=== PATIENT | male | born 1965 | race Caucasian/White ===

== ENCOUNTER 2016-12-24 10:12 | Emergency (ER) | payer OTHER ==
[~2016-12-24] VITALS: Ht 182.9 cm; Wt 85.0 kg
[~2016-12-24 10:12] MED LIST: AUGM875T PO; IBUP800T23 PO
[2016-12-24 10:13] VITALS: BP 149/87; PULSE 65; RESP 12; TEMP 97.8; O2SAT 96
[2016-12-24] MEDS ORDERED: IBUP800T23 PO (11:20)
[2016-12-24] MEDS ORDERED: ERYTOIN10 LEFT EYE (11:20)
--- NOTE | 2016-12-24 11:21 | PD ---
HPI Chief Complaint: Eye Problems/Injury Time Seen by Provider: 11:18 Travel History International Travel<30 days: No Contact w/Intl Traveler<30days: No Traveled to known affect area: No History of Present Illness HPI 51-year-old male presents to the emergency Department with complaint of left eye pain 2 days. He got a small, splinter piece of wood in his eye the other day and removed it and then started having eye pain with redness and clear drainage. He flushed his eye with no relief. Has not taken any medications or tried any treatments to the base symptoms. Reports blurry vision. Denies allergies. Denies fever, chills, nausea, vomiting. No other modifying factors or associated signs and symptoms. PFSH Past Medical History Diminished Hearing: No Social History Alcohol Use: Yes (6PK A DAY) Tobacco Use: Yes (1 PK DAY) Substance Use: No Allergies-Medications (Allergen,Severity, Reaction): Coded Allergies: No Known Allergies (Verified , 12/24/16) Reported Meds & Prescriptions Reported Meds & Active Scripts Active Ibuprofen 800 Mg Tab 800 Mg PO Q6HR PRN Erythromycin Opth Oint 5 Mg/Gm Oint 1 Applic LEFT EYE QID 7 Days Ibuprofen 800 Mg Tab 800 Mg PO TID PRN [id number] 875 Mg Tab 875 Mg PO BID 10 Days Review of Systems Except as stated in HPI: all other systems reviewed are Neg Physical Exam Narrative GENERAL: Well-nourished, well-developed male patient, in no acute distress SKIN: Warm and dry. HEAD: Atraumatic. Normocephalic. EYES: Pupils equal and round at 3 mm with brisk reaction. PERRLA. EOMI. Left lid eversion with no foreign body noted. Left eye with scleral erythema and mild lid edema. No orbital tenderness, erythema or cellulitis. Left eye with photophobia. No consensual photophobia. No scleral icterus. Clear drainage. Vasques lamp exam reveals corneal abrasion at the 6 o'clock position to the lower sclera area. ENT: Mucosa pink and moist. Airway patent. NECK: Trachea midline. CARDIOVASCULAR: Regular rate. RESPIRATORY: No accessory muscle use. GASTROINTESTINAL: Flat. NEUROLOGICAL: Awake and alert. Oriented 3. No obvious cranial nerve deficits. Motor grossly within normal limits. Normal speech. PSYCHIATRIC: Appropriate mood and affect; insight and judgment normal. Data Data Last Documented VS Vital Signs Date Time Temp Pulse Resp B/P Pulse Ox O2 Delivery O2 Flow Rate FiO2 12/24/16 10:13 97.8 65 12 149/87 96 Room Air MDM Medical Decision Making Medical Screen Exam Complete: Yes Emergency Medical Condition: Yes Medical Record Reviewed: Yes Differential Diagnosis Corneal abrasion, foreign body, corneal ulceration Narrative Course 51-year-old male physical exam consistent with a left eye corneal abrasion. Erythromycin eye ointment and ibuprofen prescribed for home. 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 Patient is medically cleared and stable for discharge. Discussed reasons to return to the emergency department. Instructed patient to follow up with primary care provider. Patient agrees with treatment plan. The patients vital signs are stable and the patient is stable for outpatient follow-up and treatment. Patient discharged home, stable and in no acute distress. Diagnosis Primary Impression: Corneal abrasion, left Qualified Code: S05.02XA - Corneal abrasion, left, initial encounter Referrals: Web Interface Developer Primary Care Physician Patient Instructions: Corneal Abrasion (ED), General Instructions Departure Forms: Tests/Procedures, Work Release Enter return to work date: Dec 25, 2016 Additional Instructions: Ibuprofen or Tylenol as directed and as needed to reduce pain Do not rub the eye Refrigerated eye drops as needed to reduce pain Cool compresses to the eye as needed to reduce pain Follow-up with ophthalmology Primary care provider Return to the emergency department immediately Med/Other Pt SpecificInfo: Prescription(s) given Scripts Ibuprofen 800 Mg [id number] Mg PO Q6HR PRN (PAIN) #30 TAB Ref 0 Prov:Nora Hall 12/24/16 Erythromycin Opth Oint 5 Mg/Gm Oint1 Applic LEFT EYE QID 7 Days Ref 0 Prov:Nora Hall 12/24/16 Disposition: 01 DISCHARGE HOME Condition: Stable Nora Hall Dec 24, 2016 11:21
== END 2016-12-24 11:47 | disposition home or self-care (01) ==
LOC: NEPB 10:12
DX: S05.02XA Injury of conjunctiva and corneal abrasion without foreign body, left eye, initial encounter (principal); H57.8 Other specified disorders of eye and adnexa; F17.200 Nicotine dependence, unspecified, uncomplicated; X58.XXXA Exposure to other specified factors, initial encounter
CPT/HCPCS: 99283

== ENCOUNTER 2017-06-02 10:31 | Emergency (ER) | payer SELFPAY ==
[~2017-06-02] VITALS: Ht 182.9 cm; Wt 83.0 kg
[~2017-06-02 10:31] MED LIST changes: +ERYTOIN10 LEFT EYE
[2017-06-02 10:32] VITALS: BP 158/103; PULSE 79; RESP 20; TEMP 98.2; O2SAT 98
[2017-06-02 10:48] VITALS: BP 142/88; PULSE 69; RESP 14; O2SAT 97
--- NOTE | 2017-06-02 10:48 | PD ---
HPI Chief Complaint: Skin Problem Time Seen by Provider: 10:48 Travel History International Travel<30 days: No Contact w/Intl Traveler<30days: No Traveled to known affect area: No History of Present Illness HPI 51-year-old male came to the emergency room with history of left lower leg swelling, redness and tenderness for past 2 days. 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 The laceration was gaping but he went home and cleaned it himself and Steri-Stripped it. Patient says that it seemed to be healing well up until 2 days ago when he noticed a redness. Yesterday he noticed a pus filled list or that he tried to pop. After that he cleaned it and soaked his leg in water with Epsom salt. But this morning he noticed the redness and swelling of his foot distally. No history of fever or chills. Vital signs are stable. He claims to be an otherwise healthy person. [facility] Past Medical History Narrative Medical List of his past medical, surgical, social and family history is reviewed from the nursing note. Diminished Hearing: No Social History Alcohol Use: Yes (6PK A DAY) Tobacco Use: Yes (1 PK DAY) Substance Use: No Allergies-Medications (Allergen,Severity, Reaction): Coded Allergies: *MDRO Multi-Drug Resistant Organism (Verified Adverse Reaction, Unknown, ) MRSA (ankle) 06/02/17 Comments No known allergies. Reported Meds & Prescriptions Reported Meds & Active Scripts Active Bactrim DS (Sulfamethoxazole-Trimethoprim) 800-160 Mg Tab 1 Tab PO BID Narrative Medication List of his home medications reviewed from the nursing note. Review of Systems Except as stated in HPI: all other systems reviewed are Neg Physical Exam Narrative GENERAL: Awake, alert, moderate distress SKIN: Focused skin assessment warm/dry. Redness, swelling, fluctuance and tenderness 4 cm above the medial malleolus on the left leg. This measures 5 cm x 2 cm. The foot distally is swollen as well. Good range of motion. No drainage. HEAD: Atraumatic. Normocephalic. EYES: Pupils equal and round. No scleral icterus. No injection or drainage. ENT: No nasal bleeding or discharge. Mucous membranes pink and moist. NECK: Trachea midline. No JVD. CARDIOVASCULAR: Regular rate and rhythm. No murmur appreciated. RESPIRATORY: No accessory muscle use. Clear to auscultation. Breath sounds equal bilaterally. GASTROINTESTINAL: Abdomen soft, non-tender, nondistended. Hepatic and splenic margins not palpable. MUSCULOSKELETAL: No obvious deformities. No clubbing. No cyanosis. No edema. NEUROLOGICAL: Awake and alert. No obvious cranial nerve deficits. Motor grossly within normal limits. Normal speech. PSYCHIATRIC: Appropriate mood and affect; insight and judgment normal. Data Data Last Documented VS Orders Complete Blood Count With Diff (06/02/17 10:53) Comprehensive Metabolic Panel (06/02/17 10:53) Lactic Acid Sepsis Protocol (06/02/17 10:53) Blood Culture (06/02/17 10:53) Blood Glucose (06/02/17 10:53) Ecg Monitoring (06/02/17 10:53) Iv Access Insert/Monitor (06/02/17 10:53) Oximetry (06/02/17 10:53) Oxygen Administration (06/02/17 10:53) Tibia/Fibula (Ap/Lat) (06/02/17 ) Wound Culture And Gram Stain (06/02/17 11:58) Wound Care (06/02/17 11:58) Lidocai-Epi 1%-1:100,000 Inj (Xylocaine- (06/02/17 12:00) Sulfamet-Trimeth Ds 800-160 Mg (Bactrim (06/02/17 12:15) Labs MDM Medical Decision Making Medical Screen Exam Complete: Yes Emergency Medical Condition: Yes Medical Record Reviewed: Yes Differential Diagnosis Osteomyelitis, abscess, cellulitis, retained foreign body Narrative Course 12:09 PM x-ray of the foot was negative for any fracture/osteomyelitis or foreign body. Patient has slight leukocytosis with left shift. I've asked the PA to do an I&D. Please refer to his note. Wound culture will be sent. I will order Bactrim as antibiotic. 1:18 PM given the elevated lactic acid I wanted the patient to be admitted but he wants to leave. He understands that the blood test results suggest that the infection is no longer just localized to his leg. However he does not want to stay because he doesn't have insurance and hospitalization incurs a lot of bills. He is in full capacity to make decisions for himself. He will sign AMA. I will however give him a prescription for Bactrim. Procedures EKG Prior to Arrival: No Diagnosis Primary Impression: Leg abscess Additional Impression: Lactic acidosis Scripts Sulfamethoxazole-Trimethoprim (Bactrim DS)800-160 Mg Tab1 Tab PO BID #20 TAB Ref 0 Prov:Margarita Hudson MD 06/02/17 Disposition: 07 AGAINST MEDICAL ADVICE Condition: Serious Margarita Hudson MD Jun 02, 2017 10:48 Neutrophils (%) (Auto) 74.9 % Lymphocytes (%) (Auto) 15.0 % Monocytes (%) (Auto) 9.3 % Eosinophils (%) (Auto) 0.3 % Basophils (%) (Auto) 0.5 % Neutrophils # (Auto) 9.3 TH/MM3 Lymphocytes # (Auto) 1.9 TH/MM3 Monocytes # (Auto) 1.2 TH/MM3 Eosinophils # (Auto) 0.0 TH/MM3 Basophils # (Auto) 0.1 TH/MM3 CBC Comment DIFF FINAL Differential Comment Sodium Level 141 MEQ/L Potassium Level 4.3 MEQ/L Chloride Level 108 MEQ/L Carbon Dioxide Level 24.8 MEQ/L Anion Gap 8 MEQ/L Blood Urea Nitrogen 12 MG/DL Creatinine 0.89 MG/DL Estimat Glomerular Filtration 91 ML/MIN Rate Random Glucose 101 MG/DL Lactic Acid Level 2.1 mmol/L Calcium Level 9.6 MG/DL Total Bilirubin 0.7 MG/DL Aspartate Amino Transf 13 U/L (AST/SGOT) Alanine Aminotransferase 26 U/L (ALT/SGPT) Alkaline Phosphatase 78 U/L Total Protein 7.7 GM/DL Albumin 3.9 GM/DL [facility] Medical Decision Making Medical Screen Exam Complete: Yes Emergency Medical Condition: Yes Medical Record Reviewed: Yes Differential Diagnosis Osteomyelitis, abscess, cellulitis, retained foreign body Narrative Course 12:09 PM x-ray of the foot was negative for any fracture/osteomyelitis or foreign body. Patient has slight leukocytosis with left shift. I've asked the PA to do an I&D. Please refer to his note. Wound culture will be sent. I will order Bactrim as antibiotic. 1:18 PM given the elevated lactic acid I wanted the patient to be admitted but he wants to leave. He understands that the blood test results suggest that the infection is no longer just localized to his leg. However he does not want to stay because he doesn't have insurance and hospitalization incurs a lot of bills. He is in full capacity to make decisions for himself. He will sign AMA. I will however give him a prescription for Bactrim. Procedures EKG Prior to Arrival: No Diagnosis Primary Impression: Leg abscess Additional Impression: Lactic acidosis Scripts Sulfamethoxazole-Trimethoprim (Bactrim DS)800-160 Mg Tab1 Tab PO BID #20 TAB Ref 0 Prov:Margarita Hudson MD 06/02/17 Disposition: 07 AGAINST MEDICAL ADVICE Condition: Serious Margarita Hudson MD Jun 02, 2017 10:48
[2017-06-02 11:18] LABS: AUTOMATED NEUTROPHIL # 9.3 TH/MM3 (1.8-7.7); BASOPHIL # 0.1 TH/MM3 (0-0.2); BASOPHIL % 0.5 % (0.0-2.0); EOSINOPHIL % 0.3 % (0.0-4.0); HEMATOCRIT 48.5 % (39.0-51.0); HEMO FLAGS DIFF FINAL; LYMPHOCYTE # 1.9 TH/MM3 (1.0-4.8); MEAN CELL VOLUME 95.3 FL (80.0-100.0); MEAN CORPUSCULAR HEMOGLOBIN 31.8 PG (27.0-34.0); MEAN CORPUSCULAR HGB CONC 33.3 % (32.0-36.0); MONO % 9.3 % (0.0-8.0); NEUT % 74.9 % (16.0-70.0); PLATELET COUNT 202 TH/MM3 (150-450); RED BLOOD COUNT 5.08 MIL/MM3 (4.50-5.90); RED CELL DISTRIBUTION WIDTH 13.1 % (11.6-17.2); WHITE BLOOD COUNT 12.4 TH/MM3 (4.0-11.0)
--- NOTE | 2017-06-02 11:47 | RADRPT ---
EXAM DATE/TIME: 06/02/2017 11:09 [place] COMPARISON: No previous studies available for comparison. INDICATIONS : Dropped piece concrete on ankle last week, pain with swelling medial ankle. MEDICAL HISTORY : None. SURGICAL HISTORY : None. ENCOUNTER: Initial ACUITY: 1 week PAIN SCORE: 9/10 LOCATION: Left ankle. FINDINGS: Two view examination of the left tibia demonstrates no evidence of fracture or dislocation. Bony min eralization is normal. There is focal soft tissue swelling just above the medial malleolus. No radiop aque foreign bodies are demonstrated. CONCLUSION: Focal soft tissue swelling just above the medial malleolus. Otherwise unremarkable exam. Deven Phelps MD on June 02, 2017 at 11:44 Board Certified Radiologist. This report was verified electronically.
[2017-06-02] MEDS ORDERED: LIDOCAINE 1%/EPINEPHrine 1:100,000 SOLN 20 ML VIAL INFIL ONE (12:00)
[2017-06-02 12:12] LABS: ANION GAP 8 MEQ/L (5-15); AST (GOT) 13 U/L (15-37); BICARBONATE 24.8 MEQ/L (21.0-32.0); BLOOD UREA NITROGEN 12 MG/DL (7-18); CHLORIDE 108 MEQ/L (98-107); GLOMERULAR FILTRATION RATE 91 ML/MIN (>89); POTASSIUM 4.3 MEQ/L (3.5-5.1); SODIUM (NA) 141 MEQ/L (136-145)
[2017-06-02 12:14] LABS: ALKALINE PHOSPHATASE 78 U/L (45-117); ALT (GPT) 26 U/L (12-78); TOTAL BILIRUBIN ADULT 0.7 MG/DL (0.2-1.0)
[2017-06-02] MEDS ORDERED: SULFAMETHOXAZOLE-TRIMETHOPRIM DS 800-160 MG TAB PO ONE (12:15)
--- NOTE | 2017-06-02 12:36 | PD ---
Physical Exam Date Seen by Provider: Jun 02, 2017 Time Seen by Provider: 12:35 Narrative 51-year-old male that presents to the ED for evaluation of abscess. I was asked by my attending to incise and drain abscess. Please refer to my attendings note. Data Data Last Documented VS Vital Signs Date Time Temp Pulse Resp B/P Pulse Ox O2 Delivery O2 Flow Rate FiO2 06/02/17 10:48 69 14 142/88 97 Room Air 06/02/17 10:32 98.2 Orders Complete Blood Count With Diff (06/02/17 10:53) Comprehensive Metabolic Panel (06/02/17 10:53) Lactic Acid Sepsis Protocol (06/02/17 10:53) Urinalysis - C+S If Indicated (06/02/17 10:53) Blood Culture (06/02/17 10:53) Blood Glucose (06/02/17 10:53) Ecg Monitoring (06/02/17 10:53) Iv Access Insert/Monitor (06/02/17 10:53) Oximetry (06/02/17 10:53) Oxygen Administration (06/02/17 10:53) Tibia/Fibula (Ap/Lat) (06/02/17 ) Wound Culture And Gram Stain (06/02/17 11:57) Wound Culture And Gram Stain (06/02/17 11:58) Wound Care (06/02/17 11:58) Lidocai-Epi 1%-1:100,000 Inj (Xylocaine- (06/02/17 12:00) Sulfamet-Trimeth Ds 800-160 Mg (Bactrim (06/02/17 12:15) Labs Laboratory Tests Test 06/02/17 11:00 White Blood Count 12.4 TH/MM3 Red Blood Count 5.08 MIL/MM3 Hemoglobin 16.1 GM/DL Hematocrit 48.5 % Mean Corpuscular Volume 95.3 FL Mean Corpuscular Hemoglobin 31.8 PG Mean Corpuscular Hemoglobin 33.3 % Concent Red Cell Distribution Width 13.1 % Platelet Count 202 TH/MM3 Mean Platelet Volume 8.2 FL Neutrophils (%) (Auto) 74.9 % Lymphocytes (%) (Auto) 15.0 % Monocytes (%) (Auto) 9.3 % Eosinophils (%) (Auto) 0.3 % Basophils (%) (Auto) 0.5 % Neutrophils # (Auto) 9.3 TH/MM3 Lymphocytes # (Auto) 1.9 TH/MM3 Monocytes # (Auto) 1.2 TH/MM3 Eosinophils # (Auto) 0.0 TH/MM3 Basophils # (Auto) 0.1 TH/MM3 CBC Comment DIFF FINAL Differential Comment Sodium Level 141 MEQ/L Potassium Level 4.3 MEQ/L Chloride Level 108 MEQ/L Carbon Dioxide Level 24.8 MEQ/L Anion Gap 8 MEQ/L Blood Urea Nitrogen 12 MG/DL Creatinine 0.89 MG/DL Estimat Glomerular Filtration 91 ML/MIN Rate Random Glucose 101 MG/DL Lactic Acid Level 2.1 mmol/L Calcium Level 9.6 MG/DL Total Bilirubin 0.7 MG/DL Aspartate Amino Transf 13 U/L (AST/SGOT) Alanine Aminotransferase 26 U/L (ALT/SGPT) Alkaline Phosphatase 78 U/L Total Protein 7.7 GM/DL Albumin 3.9 GM/DL MDM Medical Record Reviewed: Yes Supervised Visit with DORIS: No Procedures Procedure Narrative After the risks and benefits were discussed the following procedure was performed: INCISION AND DRAINAGE OF ABSCESS: The area was prepped and was sterilely draped. A subcutaneous wheal of 1 % Xylocaine with a total number 5 mL was used to anesthetize the area. The area was properly anesthetized. A number 11 scalpel was used to make a 1 -cm incision across the area of the abscess. Cultures were obtained. The abscess was drained an irrigated with normal saline. Quarter inch iodoform packing was placed in the wound. Sterile dressing applied. Patient advised to have packing removed in two days. Scripts No Active Prescriptions or Reported Meds Jim Vogel Jun 02, 2017 12:36
[2017-06-02 13:10] LABS: LACTIC ACID GHOST NOT REPORTABLE
[2017-06-02] MEDS ORDERED: BACT800T5 PO (13:19)
== END 2017-06-02 13:56 | disposition left against medical advice (07) ==
LOC: NEPC 10:31
DX: L02.416 Cutaneous abscess of left lower limb (principal); S81.812D Laceration without foreign body, left lower leg, subsequent encounter; E87.2 Acidosis; D72.829 Elevated white blood cell count, unspecified; B95.62 Methicillin resistant Staphylococcus aureus infection as the cause of diseases classified elsewhere; F17.200 Nicotine dependence, unspecified, uncomplicated; W20.8XXD Other cause of strike by thrown, projected or falling object, subsequent encounter; Z53.29 Procedure and treatment not carried out because of patient's decision for other reasons
CPT/HCPCS: 10061; 73590; 80053; 83605; 85025; 86403; 87040; 87070; 87186; 87205

== ENCOUNTER 2017-06-11 08:08 | Emergency (ER) | payer SELFPAY ==
[~2017-06-11 08:08] MED LIST changes: -AUGM875T PO; +BACT800T5 PO; -ERYTOIN10 LEFT EYE; -IBUP800T23 PO
[2017-06-11 08:09] VITALS: BP 163/83; PULSE 64; RESP 20; TEMP 98.4; O2SAT 98
--- NOTE | 2017-06-11 08:23 | PD ---
HPI Chief Complaint: Medical Clearance Time Seen by Provider: 08:23 Travel History International Travel<30 days: No Contact w/Intl Traveler<30days: No Traveled to known affect area: No History of Present Illness HPI 51-year-old male presents the emergency department status post recent visit on June 02 for an abscess on his right inner ankle that was drained at that time. Patient received a letter in the mail stating that he had MRSA and he thought he may be on the wrong antibiotic. Patient was treated with Bactrim DS twice a day 10 days. He states he is currently taking and appears to be getting better but when the ladder came he felt he needed to have it rechecked. He currently states no significant pain or other symptoms. He has no known drug allergies. PFSH Past Medical History Diminished Hearing: No Inguinal Hernia: Yes Past Surgical History Abdominal Surgery: Yes (INGUINAL HERNIA REPAIR) Other Surgery: Yes (BOIL ON BUTTOCK REMOVED) Social History Alcohol Use: Yes (6PK A DAY) Tobacco Use: Yes (1 PK DAY) Substance Use: Yes (MARIJUANA) Allergies-Medications (Allergen,Severity, Reaction): Coded Allergies: *MDRO Multi-Drug Resistant Organism (Verified Adverse Reaction, Unknown, ) MRSA (ankle) 06/02/17 Reported Meds & Prescriptions Reported Meds & Active Scripts Active Bactrim DS (Sulfamethoxazole-Trimethoprim) 800-160 Mg Tab 1 Tab PO BID Review of Systems Except as stated in HPI: all other systems reviewed are Neg General / Constitutional: No: Fever Eyes: No: Visual changes HENT: No: Headaches Cardiovascular: No: Chest Pain or Discomfort Respiratory: No: Shortness of Breath Gastrointestinal: No: Abdominal Pain Genitourinary: No: Dysuria Musculoskeletal: No: Pain Skin: Positive Lesions (see history present illness), No Rash Neurologic: No: Weakness Psychiatric: No: Depression Endocrine: No: Polydipsia Hematologic/Lymphatic: No: Easy Bruising Physical Exam Narrative GENERAL: Patient appears in no acute distress. SKIN: Warm and dry. Normal color. Normal turgor. Patient has a well-healing abscess site to the right medial ankle with localized granulation tissue without signs of worsening cellulitis or recurrent abscess. HEAD: Atraumatic. Normocephalic. EYES: Pupils equal and round. No scleral icterus. No injection or drainage. ENT: No nasal bleeding or discharge. Mucous membranes pink and moist. Pharynx is clear. Airway is patent. NECK: Trachea midline. Supple and nontender. CARDIOVASCULAR: Regular rate and rhythm. RESPIRATORY: No accessory muscle use. MUSCULOSKELETAL: Extremities without clubbing, cyanosis, or edema. No obvious deformities. NEUROLOGICAL: Awake and alert. No obvious cranial nerve deficits. Motor grossly within normal limits. Five out of 5 muscle strength in the arms and legs. Normal speech. PSYCHIATRIC: Appropriate mood and affect; insight and judgment normal. Data Data Last Documented VS Vital Signs Date Time Temp Pulse Resp B/P Pulse Ox O2 Delivery O2 Flow Rate FiO2 06/11/17 08:09 98.4 64 20 163/83 98 Room Air MDM Medical Decision Making Medical Screen Exam Complete: Yes Emergency Medical Condition: No Differential Diagnosis Cellulitis. Abscess. MRSA. Records review. Narrative Course Patient is medically stable at time of exam. Laboratory results are reviewed showing that the patient doesn't fact of MRSA sensitive to Bactrim which is currently taking for treatment. The patient was examined and found to have no emergent medical condition. Patient was informed of the status and can return with emergency symptoms in the future. Condition: Stable Collin Bonilla Jun 11, 2017 08:23
== END 2017-06-11 08:41 | disposition left against medical advice (07) ==
LOC: NEPK 08:08
DX: L02.415 Cutaneous abscess of right lower limb (principal); Z72.0 Tobacco use
CPT/HCPCS: 99281